=== PATIENT | male | born 1950 | race Caucasian/White ===

== ENCOUNTER 2024-05-29 09:10 | Outpatient (REF) | payer OTHER, SELFPAY ==
--- NOTE | ~2024-05-29 | XR_ITS ---
CLINICAL HISTORY: M25.519 - Pain in unspecified shoulder 3 view left shoulder Comparison: None Findings: Bones intact. No dislocations. Moderate narrowing with mild degenerative spurring in the glenohumeral joint. Moderate narrowing with large degenerative spurs in the acromioclavicular joint. There is a large subacromial spur. No radiopaque foreign body. IMPRESSION: 1. No acute fracture or dislocation. 2. Moderate arthritic changes especially in the AC joint combined with the presence of a subacromial spur raises the possibility of impingement syndrome in the appropriate clinical setting. This document has been electronically signed by: Michelle Tao DO on 05/29/2024 21:13:33
--- NOTE | ~2024-05-29 | XR_ITS ---
CLINICAL HISTORY: M25.519 - Pain in unspecified shoulder 3 view right shoulder Comparison: None Findings: Bones intact. No dislocations. Mild narrowing with degenerative spurring in the glenohumeral joint. Moderate narrowing with degenerative spurring in the acromioclavicular joint. No radiopaque foreign body. IMPRESSION: 1. No acute fracture or dislocation. 2. [id number] degenerative changes especially in the AC joint. The degree of degenerative spurring can contribute to impingement syndrome in the appropriate clinical setting. This document has been electronically signed by: Michelle Tao DO on 05/29/2024 21:13:24
== END 2024-05-29 09:11 | disposition home or self-care (01) ==
LOC: HO.HOSX 09:10
PROVIDERS: Visit Provider Physician Assistant
DX: M19.011 Primary osteoarthritis, right shoulder (principal); M19.012 Primary osteoarthritis, left shoulder; M75.01 Adhesive capsulitis of right shoulder; M75.02 Adhesive capsulitis of left shoulder
CPT/HCPCS: 20610; 73030; 99202; J1010; J2003

== ENCOUNTER 2024-05-29 12:57 | Outpatient (AMB) | payer MEDICARE, SELFPAY ==
--- NOTE | 2024-05-29 13:07 | MHC.OFFVIS ---
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 Patient reports off and on pain for about 3 months and its been getting worse these past 3 weeks. 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 He notices that his pain is worse with over head reaching, laying down on his side, and reaching for his back. Patient mentions that his pain is also in his biceps. Patient states that his pain is worse on the left side than the right. He has tried lidocaine patches, topical gels and Tylenol with no relief. 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 The discomfort is exacerbated by activities such as overhead reaching, lying on the side, and reaching behind the back, with radiation into the biceps area. Despite trying lidocaine patches, topical gels, and Tylenol, he has not achieved pain relief. 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 Abduction to 45 degrees. Able to reach back pocket. No motion with ER. Pain with cross-body reach. 3/5 strength with empty can. Negative drop arm. NVI. Office Procedures AMB Joint Injection/Aspiration Joint Injection/Aspiration Primary Site: right shoulder Secondary Site: left shoulder Prep: site was prepped using aseptic technique, ethochloride spray was applied and injection warnings given Injected: 80 mg of, DepoMedrol, with 8 mL of (2% plain lido ) and in the subcromial space Approach Used: posterolateral Procedure: The patient tolerated the procedure well, but had some pain with the injection and there was some relief with the local anesthesia Coding 69856 - Bilateral Large Joint Additional procedure code (CPT) needed Assessment & Plan Assessment & Plan (1) Bilateral acromioclavicular joint arthritis: Code(s): M19.011 - Primary osteoarthritis, right shoulder; M19.012 - Primary osteoarthritis, left shoulder Category: Medical (2) Arthritis of left glenohumeral joint: Code(s): M19.012 - Primary osteoarthritis, left shoulder Category: Medical (3) Arthritis of right glenohumeral joint: Code(s): M19.011 - Primary osteoarthritis, right shoulder Category: Medical (4) Adhesive capsulitis of both shoulders: Code(s): M75.01 - Adhesive capsulitis of right shoulder; M75.02 - Adhesive capsulitis of left shoulder Category: Medical Plan During the visit, I discussed the findings from the x-rays revealing bilateral osteoarthritis. Physical exam findings are indicative of adhesive capsulitis with no ability to perform external rotation. The primary management strategy involves cortisone injections, which we decided on after considering their efficacy in reducing inflammation and improving joint function. The patient was offered a cortisone injection in bilateral shoulders with 80 mg of DepoMedrol. The patient was explained the risks, benefits, and alternatives to receiving this injection. After receiving consent for the injection, the patient had the procedure done while in the office today. The patient tolerated the procedure well with no complications. Additionally, we discussed the role of physical therapy in enhancing strength and range of motion. The patient is interested in moving forward with physical therapy coupled with a cortisone injection he received in the office today for maximal benefits. Follow-up appointments will assess the treatment response, and patient feedback on results is important for ongoing management. X-rays of bilateral shoulders which were obtained while in the office today and were reviewed by me, Reyna Trimble PA-C, revealed AC joint arthritis and degenerative changes of the glenohumeral joint. Orders: Orders XR shoulder LT min 2V Today M25.519 - Pain in unspecified shoulder XR shoulder RT min 2V Today M25.519 - Pain in unspecified shoulder Coding Level of Care Code New Pt Level 3 (81821) Diagnoses Bilateral acromioclavicular joint arthritis M19.011; M19.012 Arthritis of left glenohumeral joint M19.012 Arthritis of right glenohumeral joint M19.011 Adhesive capsulitis of both shoulders M75.01; M75.02 CPT Codes Coding - 78236 - Bilateral Large Joint: 70309 - Bilateral Large Joint ([id number])
[2024-05-29 13:18] VITALS: BMI 33.9
--- OUTSIDE RECORDS SUMMARY | 2024-05-29 14:34 | XMS_ITS | Clinical Summary ---
Author Organization [facility] [address] [place] [address] [place] [phone] Phone Care Team Providers Care Sharepoint [employer] Architect Name Role Phone Aristides Martinez MD Primary Care Provider [phone] Medications cyanocobalamin (VITAMIN B-12) 1,000 mcg tablet Take 1 Tablet by mouth daily. 10/18/2023 Active amLODIPine (NORVASC) 5 mg tablet Take 1 Tablet by mouth daily. 10/18/2023 Active tamsulosin (FLOMAX) 0.4 mg 24 hr capsule Take 1 Capsule by mouth at bedtime. Take 30 mins after same meal every day. 10/18/2023 Active atorvastatin (LIPITOR) 10 mg tablet Take 1 Tablet by mouth daily. 10/18/2023 Active Active Problems Problem Noted Date Diagnosed Date Essential hypertension, benign 02/03/2024 Overview (02/03/2024): Off antihypertensive therapy. Reports home BP well controlled. 132-138/82-84. DASH diet and weight loss. B12 deficiency 04/12/2023 Obesity (BMI 30.0-34.9) 04/12/2023 Hyperlipidemia 04/07/2021 Aneurysm of ascending aorta without rupture 07/31 Overview (02/03/2024): Chest CT 08/06/2015 - 4.3 cm, 1 mm larger than last year. BPH with obstruction/lower urinary tract symptom s 06/10/2015 Overview (02/03/2024): Sees Uro Lung nodules 03/07/2014 Overview (02/03/2024): Stable x 2 yrs, last CT 2015, no further CT recommended. Dupuytren's contracture of left hand 01/23/2014 Encounters Date Type Department Care Team Description 05/18/2024 Telephone Adult Medicine [facility] [address] [place], [place] [phone] Aristides Martinez MD Referral (LVM called to make appt.) 04/24/2024 9:00 AM EST Office Visit Adult Medicine [facility] [address] [place], [place] [phone] Fabi Snow PA Routine general medical examination at a health care facility (Primary Dx); Aneurysm of ascending aorta without rupture (CMS/HCC); Essential hypertension, benign; BPH with obstruction/lower urinary tract symptoms; B12 deficiency; Prediabetes; Mixed hyperlipidemia; Lung nodules from Last 3 Months Immunizations Name Administration Dates Next Due Tdap Tetanus diptheria acell ular pertussis (Boostrix; Adacel) 7yo and older 04/08/2011 Surgical History Surgery Date Site/Laterality Comments HERNIA REPAIR 2010 PROCEDURE: HISTORICAL HERNIA REPAIR/UMB Medical History Medical History Date Comments Varicose veins 04/08/2011 DX:Varicose vein s Essential hypertension, benign D X:Essential hypertension, benign Family History Medical History Relation Name Comments Other: tb Father also brother Other cancer Mother unsure Relation Name Status Comments Father Mother Social History Tobacco Use Types Packs/Day Years Used Date Smoking Tobacco: Former Smokeless Tobacco: Never Tobacco Cessation:Counseling Given: Not Answered Alcohol Use Standard Drinks/Week Comments Yes 0 (1 standard drink = 0.6 oz pur e alcohol) Sex and Gender Information Value Date Recorded Sex Assigned at Not on file Legal Sex Male 4:05 PM EST Gender Identity Not on file Sexual Orientation Not on file Obstetrics History Last Filed Vital Signs Vital Sign Reading Time Taken Comments Blood Pressure 123/81 04/24/2024 9:01 AM EST Pulse 81 04/24/2024 9:01 AM EST Temperature 36.6 ??C (97.9 ??F) 04/24/2024 9:01 AM ES T Respiratory Rate - - Oxygen Saturation - - Inhaled Oxygen Concentration - - Weight 115 kg (253 lb) 04/24/2024 9:01 AM EST Height 182.9 cm (6') 04/24/2024 9:01 AM EST Body Mass Index 34.31 04/24/2024 9:01 AM EST Plan of Treatment Upcoming Encounters Date Type Department Care Team (Late st Contact Info) Description 10/23/2024 9:00 AM EDT Office Visit Adult Medicine [facility] [address] [place] [phone] Aristides Martinez MD [address] [place] [phone] Health Maintenance Due Date Last Done Comments Zoster Vaccines (1 of 2) 2002 Medicare Annual Wellness Visit 01/28/2022 Social Influencers of Health Screening 01/28/2022 COVID-19 Vaccine (1 - 2023-2 5 season) 2023 Depression Screening 04/12/2024 04/12/2023 Influenza Vaccine (#1) 2024 Postp oned from 10/31/2023 (Patient Refused) Falls Risk Assessment 04/24/2025 04/24/2024 , 04/12/2023 Colorectal Cancer Screening: Colonoscopy 04/30/2025 Postponed from 01/28/2022 (Patient Refused) DTaP,Tdap,and Td Vaccines (2 - Td or Tdap) 04/30/2025 04/08/2011 Postponed from 04/08/2021 (Patient Refused) Hypertension/CHF/CAD Annual BMP Blood Test 05/01/2025 05/01/2024, 10/11/2023, 10/11/2023 Pneumococcal Vaccine: 50+ Years (1 of 1 - PCV) 05/01/2025 Postponed from 2002 (Patient Refused) RSV Immunization Patients 60 + Years Old (1 - 1-dose 75+ series) 08/01/2027 Cholesterol Screening (Lipid Panel) 05/01/2029 05/01/2024, 10/11/2023, 10/11/2023 Abdominal Aortic Aneurysm (AAA) Screen Completed 05/09/2021 HIB Vaccines Aged Out No longer eligi ble based on patient's age to complete this topic HPV Vaccines Aged Out No longer eligi ble based on patient's age to complete this topic Hepatitis A Vaccines Aged Out No long er eligible based on patient's age to complete this topic Hepatitis B Vaccines Aged Out No long er eligible based on patient's age to complete this topic Hepatitis C Screening Discontinued IPV Vaccines Aged Out No longer eligi ble based on patient's age to complete this topic MMR Vaccines Aged Out No longer eligi ble based on patient's age to complete this topic Meningococcal ACWY Vaccine Aged Out N o longer eligible based on patient's age to complete this topic Meningococcal B Vacine Aged Out No lo nger eligible based on patient's age to complete this topic RSV Immunization Patients Under 20 months Aged Out No longer eligible b ased on patient's age to complete this topic Varicella Vaccines Aged Out No longer eligible based on patient's age to complete this topic Procedures Procedure Name Priority Date/Time Associated Diagnosis Comments CBC WITH AUTO DIFFERENTIAL Routine 05/01/2024 7:51 AM EST Routine general medical examination at a health care facility Aneurysm of ascending aorta without rupture (CMS/HCC) Essential hypertension, benign BPH with obstruction/lower urinary tract symptoms B12 deficiency Prediabetes HEMOGLOBIN A1C Routine 05/01/2024 7:51 AM EST Routine general medical examination at a health care facility Aneurysm of ascending aorta without rupture (CMS/HCC) Essential hypertension, benign BPH with obstruction/lower urinary tract symptoms B12 deficiency Prediabetes CBC AND DIFFERENTIAL Routine 05/01/2024 7:51 AM EST Routine general medical examination at a health care facility Aneurysm of ascending aorta without rupture (CMS/HCC) Essential hypertension, benign BPH with obstruction/lower urinary tract symptoms B12 deficiency Prediabetes COMPREHENSIVE METABOLIC PANEL Routine 05/01/2024 7:51 AM EST Routine general medical examination at a health care facility Aneurysm of ascending aorta without rupture (CMS/HCC) Essential hypertension, benign BPH with obstruction/lower urinary tract symptoms B12 deficiency Prediabetes LIPID PANEL WITH REFLEX TO DIRECT LDL Routine 05/01/2024 7:51 AM EST Routine general medical examination at a health care facility Aneurysm of ascending aorta without rupture (CMS/HCC) Essential hypertension, benign BPH with obstruction/lower urinary tract symptoms B12 deficiency Prediabetes DEPRESSION SCREENING Routine 04/12/2023 FALLS RISK ASSESSMENT Routine 04/12/2023 ABDOMINAL AORTIC ANEURYSM SCRREN Routine 05/09/2021 from Last 3 Months or Most Recently Relevant to Health Maintenance Results * (ABNORMAL) Lipid panel with reflex to direct LDL (05/01/2024 7:51 AM EST) Cholesterol 152 0 - 200 mg/dL LAB CHEMISTRY METHOD 05/01/2024 10:21 AM EST [facility] Triglycerides 92 0 - 150 mg/dL LAB CHEMISTRY METHOD 05/01/2024 10:21 AM EST [facility] HDL 38(L) >=40 mg/dL LAB CHEMISTRY METHOD 05/01/2024 10:21 AM EST [facility] LDL Calculated 96 0 - 100 mg/dL LAB CHEMISTRY METHOD 05/01/2024 10:21 AM EST [facility] VLDL Cholesterol Ahmet 18.4 mg/dL LAB CHEMISTRY METHOD 05/01/2024 10:21 AM EST [facility] Non HDL Chol. (LDL+VLDL) 114 <145 mg/dL LAB CHEMISTRY METHOD 05/01/2024 10:21 AM EST [facility] Chol/HDL Ratio 4.0 0.0 - 4.4 LAB CHEMISTRY METHOD 05/01/2024 10:21 AM [facility] Blood Venous blood specimen / Unknown Venipuncture / Unknown 05/01/2024 7:51 AM EST 05/01/2024 7:51 AM EST us Fabi HANSEN LAB BLOOD ORDERABLES Fin al Result [facility] [address] [place] [address], * (ABNORMAL) CBC auto differential (05/01/2024 7:51 AM EST) [facility] WBC 8.9 4.8 - 10.8 K/mcL LAB HEMETOLOGY METHOD 05/01/2024 10:25 AM [facility] RBC 5.10 4.50 - 5.50 M/mcL LAB HEMETOLOGY METHOD 05/01/2024 10:25 AM [facility] Hemoglobin 15.0 13.5 - 17.5 g/dL LAB HEMETOLOGY METHOD 05/01/2024 10:25 AM [facility] Hematocrit 45.5 42.0 - 54.0 % LAB HEMETOLOGY METHOD 05/01/2024 10:25 AM [facility] MCV 88.7 79.0 - 98.0 FL LAB HEMETOLOGY METHOD 05/01/2024 10:25 AM [facility] MCH 29.2 27.0 - 32.0 pcg LAB HEMETOLOGY METHOD 05/01/2024 10:25 AM [facility] MCHC 33.0 32.0 - 37.0 g/dL LAB HEMETOLOGY METHOD 05/01/2024 10:25 AM [facility] RDW 12.6 11.0 - 15.0 % LAB HEMETOLOGY METHOD 05/01/2024 10:25 AM [facility] Platelets 462(H) 130 - 400 K/mcL LAB HEMETOLOGY METHOD 05/01/2024 10:25 AM [facility] MPV 9.0 7.0 - 11.0 FL LAB HEMETOLOGY METHOD 05/01/2024 10:25 AM [facility] NRBC 0.0 <1.0 % LAB HEMETOLOGY METHOD 05/01/2024 10:25 AM [facility] NRBC Absolute 0.00 <0.10 K/mcL LAB HEMETOLOGY METHOD 05/01/2024 10:25 AM [facility] Neutrophils Relative 67.3 % LAB HEMETOLOGY METHOD 05/01/2024 10:25 AM [facility] Lymphocytes Relative 18.6 % LAB HEMETOLOGY METHOD 05/01/2024 10:25 AM [facility] Monocytes Relative 9.8 % LAB HEMETOLOGY METHOD 05/01/2024 10:25 AM [facility] Eosinophils Relative 2.0 % LAB HEMETOLOGY METHOD 05/01/2024 10:25 AM [facility] Basophils Relative 0.9 % LAB HEMETOLOGY METHOD 05/01/2024 10:25 AM [facility] Immature Granulocytes Relative 1.4 % LAB HEMETOLOGY METHOD 05/01/2024 10:25 AM [facility] Neutrophils Absolute 5.96 1.50 - 7.00 K/mcL LAB HEMETOLOGY METHOD 05/01/2024 10:25 AM [facility] Lymphocytes Absolute 1.65 1.00 - 5.00 K/mcL LAB HEMETOLOGY METHOD 05/01/2024 10:25 AM [facility] Monocytes Absolute 0.87 0.20 - 1.00 K/mcL LAB HEMETOLOGY METHOD 05/01/2024 10:25 AM [facility] Eosinophils Absolute 0.18 0.00 - 0.50 K/mcL LAB HEMETOLOGY METHOD 05/01/2024 10:25 AM [facility] Basophils Absolute 0.08 0.00 - 0.20 K/mcL LAB HEMETOLOGY METHOD 05/01/2024 10:25 AM [facility] Immature Granulocytes Absolute 0.12(H) 0.00 - 0.03 K/mcL LAB HEMETOLOGY METHOD 05/01/2024 10:25 AM [facility] Blood Venous blood specimen / Unknown Venipuncture / Unknown 05/01/2024 7:51 AM EST 05/01/2024 7:51 AM EST Fabi Magaly HANSEN LAB BLOOD ORDERABLES Fin al Result Performing Organization Address [facility]/ZIP Co de Phone Number [facility] [address] [place] [address], [place] [phone] * Hemoglobin A1c (05/01/2024 7:51 AM EST) Pathologist [facility] Hemoglobin A1C 5.9 <6.5 % LAB CHEMISTRY METHOD 05/02/2024 11:10 AM EST [facility] Mean Bld Glu Estim. 123 mg/dL LAB CHEMISTRY METHOD 05/02/2024 11:10 AM EST [facility] Blood Venous blood specimen / Unknown Venipuncture / Unknown 05/01/2024 7:51 AM EST 05/01/2024 7:51 AM EST Fabi HANSEN LAB BLOOD ORDERABLES Fin al Result Performing Organization Address City/[facility]/ZIP Co de Phone Number [facility] [address] [place] [address], [place] [phone] * (ABNORMAL) Comprehensive metabolic panel (05/01/2024 7:51 AM EST) [facility] Sodium 140 133 - 145 mmol/L LAB CHEMISTRY METHOD 05/01/2024 10:21 AM EST [facility] Potassium 4.5 3.5 - 5.5 mmol/L LAB CHEMISTRY METHOD 05/01/2024 10:21 AM EST [facility] Chloride 105 96 - 110 mmol/L LAB CHEMISTRY METHOD 05/01/2024 10:21 AM EST [facility] CO2 25 21 - 32 mmol/L LAB CHEMISTRY METHOD 05/01/2024 10:21 AM [facility] Anion Gap 10 3 - 11 LAB CHEMISTRY METHOD 05/01/2024 10:21 AM [facility] Glucose 112(H) 70 - 100 mg/dL LAB CHEMISTRY METHOD 05/01/2024 10:21 AM [facility] BUN 16 5 - 25 mg/dL LAB CHEMISTRY METHOD 05/01/2024 10:21 AM [facility] Creatinine 1.04 0.70 - 1.30 mg/dL LAB CHEMISTRY METHOD 05/01/2024 10:21 AM [facility] eGFR 77 >=60 mL/min/1. 73m2 LAB CHEMISTRY METHOD 05/01/2024 10:21 AM [facility] Comment:Calculation based on the??Chronic Kidney Disease Epidemiology Collaboration (CKD-EPI) equation refit??without adjustment for race. BUN/Creatinine Ratio 15.4 LAB CHEMISTRY METHOD 05/01/2024 10:21 AM [facility] Calcium 9.3 8.5 - 10.5 mg/dL LAB CHEMISTRY METHOD 05/01/2024 10:21 AM [facility] AST (SGOT) 15 10 - 42 unit/L LAB CHEMISTRY METHOD 05/01/2024 10:21 AM [facility] ALT (SGPT) 13 10 - 60 unit/L LAB CHEMISTRY METHOD 05/01/2024 10:21 AM [facility] Alkaline Phosphatase 121 42 - 121 unit/L LAB CHEMISTRY METHOD 05/01/2024 10:21 AM [facility] Total Protein 7.9 6.0 - 8.0 g/dL LAB CHEMISTRY METHOD 05/01/2024 10:21 AM [facility] Albumin 3.9 3.2 - 5.0 g/dL LAB CHEMISTRY METHOD 05/01/2024 10:21 AM [facility] Total Bilirubin 0.7 0.0 - 1.4 mg/dL LAB CHEMISTRY METHOD 05/01/2024 10:21 AM EST [facility] Blood Venous blood specimen / Unknown Venipuncture / Unknown 05/01/2024 7:51 AM EST 05/01/2024 7:51 AM EST Fabi HANSEN LAB BLOOD ORDERABLES Fin al Result [facility] [address] [place] [address], * Falls Risk Assessment (04/12/2023) Falls Risk Assessment Abstracted Historical Provider HEALTH MAINTENANCE Final Result * Depression Screening (04/12/2023) Depression Screening Abstracted Historical Provider HEALTH MAINTENANCE Final Result * Abdominal Aortic Aneurysm Screen (05/09/2021) Abdominal Aortic Aneurysm (AAA) Screening Abstracted Anatomical Region Laterality Modality Other Historical Provider HEALTH MAINTENANCE Final Result from Last 3 Months or Most Recently Relevant to Health Maintenance Insurance MEDICARE Care Teams Sharepoint Solutions Architect Relationship Specialty Start Date End Date Aristides Martinez MD [address] [place] [address] PCP - General Internal Medicine 08/20/21
== END 2024-05-29 13:53 | disposition home or self-care (01) ==
LOC: HO.HOS 12:57
PROVIDERS: Visit Provider Physician Assistant
DX: M19.011 Primary osteoarthritis, right shoulder (principal); M19.012 Primary osteoarthritis, left shoulder; M75.01 Adhesive capsulitis of right shoulder; M75.02 Adhesive capsulitis of left shoulder
CPT/HCPCS: 20610; 99203

== ENCOUNTER → 2024-05-29 12:59 | Outpatient (BNV) | payer OTHER, SELFPAY | PROVIDERS: Visit Provider Radiology Diagnostic Radiology | DX: M19.012 Primary osteoarthritis, left shoulder (principal); M19.011 Primary osteoarthritis, right shoulder | CPT/HCPCS: 73030 ==

== ENCOUNTER 2024-08-03 10:00 | Outpatient (RCR) | payer MEDICARE, MEDICAID, SELFPAY ==
--- NOTE | 2024-06-27 11:20 | MHC.PT.EP ---
[facility] [place] Office [place] [facility] [place] [facility] [address] Vince Gomez [address] [phone] F: [phone] F: [phone] F: [phone] F: [phone] Physical Therapy Plan of Care Date of Evaluation: 06/27/24 Date of Surgery: n/a Diagnosis: adhesive capsulitis B shoulders Assessment: Patient is a 73 year old male presenting to PT with complaints of pain in his B shoulders. Pt reports onset of pain began 3.5 months ago due to insidious onset. He presents today with impairments in pain, ROM, shoulder strength, posture. 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 Pt expresses mcc goal of reducing pain, and is motivated to work towards this in PT. Clinical presentation today is most consistent with signs and sx associated with B shoulder pain and pt will benefit from skilled PT 2 week x 4 weeks to address the following problems and impairments noted upon evaluation: pain, ROM, shoulder strength, posture. These problems limit the patient with the following functional activities: reaching, lifting, ADLs. The prescribed treatment plan of care is medically necessary. Co-morbidities of HTN were identified and taken into considerations of plan of care. Pt was educated on HEP, role of PT, prognosis, POC. Frequency and Duration: The patient will be seen 2 x week x 4 weeks Short Term Goals: Pt will demonstrate improved B shoulder ROM by minimum 20 degrees in all directions in 2 weeks. Pt will demonstrate improved B shoulder MMT strength by 1/3 grade in 2 weeks. Assistant Manager Goals: Pt will demonstrate improved SPADI score by 13 points in 4 weeks for improved functional mobility. Pt will demonstrate ability to reach and lift with min to no pain in 4 weeks for return to PLOF. Pt will demonstrate improved ability to dress himself in 4 weeks with min to no pain for improved tolerance to ADLs. Treatment Plan: Modalities to reduce pain, spasms and effusion. Manual therapy to restore motion and function. Therapeutic exercise to improve strength and flexibility. Neuromuscular re-education for posture and balance. Therapeutic activities to return to functional activities of daily living. Electronically signed by: Jackie Handley, PT, DPT, ATC Please sign and return to therapist. Thank you for your referral.
--- NOTE | 2024-08-07 08:45 | MHC.PT.DC ---
[facility] [place] [facility] [place] [facility] [place] [facility] [address] Vince Gomez [address] [phone] F: [phone] F: [phone] F: [phone] F: [phone] Physical Therapy Discharge Report Diagnosis: adhesive capsulitis B shoulders Date of Surgery: n/a Date of Evaluation: 06/27/24 Date of Discharge: 08/07/24 Treatments to Date: 12 Cancellations to Date: 0 No Shows to Date: 0 Discharge Status: Improved Function Independent with HEP Discharge Summary: Pt saw PIGMENT WEIGHER at last visit. Plan was to d/c as he is independent in HEP and demonstrating improvements. Electronically signed by: Jackie Handley, PT, DPT, ATC Please sign and return to therapist. Thank you for your referral.
== END 2024-08-07 08:46 | disposition home or self-care (01) ==
LOC: HO.PTCHIC 10:00
PROVIDERS: PCP Internal Medicine; Visit Provider Physician Assistant
DX: M19.011 Primary osteoarthritis, right shoulder (principal); M19.012 Primary osteoarthritis, left shoulder; M75.01 Adhesive capsulitis of right shoulder; M75.02 Adhesive capsulitis of left shoulder
CPT/HCPCS: 97110; 97140; 97161